=== PATIENT | male | born 1950 ===

== ENCOUNTER 2018-12-14 08:23 | Outpatient (CLI) | payer OTHER ==
[~2018-12-14 08:23] MED LIST: CIPRO750 MG PO; CLONAZEPAM1 MG PO; DOCUSATE SODIU100 MG PO; METHYLPRED4 MG/DOSE- PO; NEURONTIN PO; PERCOCET 5/3251 TAB PO
== END 2018-12-14 08:25 | disposition home or self-care (01) ==
LOC: SONOGRAMA 08:23
DX: E04.1 Nontoxic single thyroid nodule (principal)